=== PATIENT | female | born 1965 | race Hispanic/Latino ===

== ENCOUNTER → 2017-09-06 | Outpatient (CLI) | payer BC | LOC: MAMMO 11:22 | PROVIDERS: ATTEND Obstetrics & Gynecology | DX: Z12.31 Encounter for screening mammogram for malignant neoplasm of breast (principal) ==

== ENCOUNTER → 2017-10-25 | Outpatient (CLI) | payer BC ==
--- NOTE | 2017-10-25 12:05 | Diagnostic Imaging Report ---
EXAM: DXA BONE DENSITY INDICATIONS: DISORDER OF BONE COMPARISON: None. FINDINGS: Proximal left femur total bone mineral density (BMD) (g/cm2):1.071 Femur T-score (standard deviation relative to young adult mean BMD): 0.8 Femur Z-score (standard deviation relative to age-matched control group):1.6 Proximal left femur neck bone mineral density (BMD) (g/cm2):0.929 Femur T-score (standard deviation relative to young adult mean BMD): 0.5 Femur Z-score (standard deviation relative to age-matched control group):1.5 Lumbar bone mineral density (BMD) (g/cm2):1.126 Lumbar T-score (standard deviation relative to young adult mean BMD): 0.7 Lumbar Z-score (standard deviation relative to age-matched control group):1.8 Change since prior exam (%): Femur:Not applicable. Spine:Not applicable. Change since oldest prior exam (%): Femur:Not applicable. Spine:Not applicable. CONCLUSION: 1. Bone mineral density in the left femur is classified as normal. Fracture risk is not increased. 2. Bone mineral density in the spine is classified as normal. Fracture risk is not increased. World Health Organization Classification: *The Z-score is provided for informational purposes. The T-score is preferable for clinical decisions. When comparing exams, a change of >4% is considered statistically significant. SUGGESTED RECOMMENDATIONS: Normal \T\ Osteopenia:Consideration should be given to use of calcium supplementation, daily multiple vitamins and adequate exercise, as preventive measures against osteoporosis, if clinically indicated. Osteoporosis \T\ Severe Osteoporosis:In addition to the above, consideration should be given to medical therapy against osteoporosis, if clinically indicated. Aiden Beavers M.D. Dictated by: Aiden Beavers M.D. on 10/25/2017 at 12:06 Electronically approved by: Aiden Beavers M.D. on 10/25/2017 at 12:06
== END ==
LOC: DX 09:58
PROVIDERS: ATTEND Family Medicine
DX: M89.9 Disorder of bone, unspecified (principal)
CPT/HCPCS: 77080

== ENCOUNTER → 2020-02-28 | Outpatient (CLI) | payer BC | LOC: MAMMO 09:10 | PROVIDERS: ATTEND Family Medicine | DX: Z12.31 Encounter for screening mammogram for malignant neoplasm of breast (principal) | CPT/HCPCS: 77067 ==

== ENCOUNTER → 2022-10-14 | Outpatient (CLI) | payer BC | LOC: MAMMO 10:01 | PROVIDERS: ATTEND Family Medicine | DX: Z12.31 Encounter for screening mammogram for malignant neoplasm of breast (principal); Z13.820 Encounter for screening for osteoporosis | CPT/HCPCS: 77067; 77080 ==